=== PATIENT | male | born 1980 | race Caucasian/White ===

== ENCOUNTER → 2016-05-12 | Outpatient (REF) | payer OTHER | LOC: M LABSMT 09:03 | PROVIDERS: ATTEND Nurse Practitioner Women's Health | DX: E29.1 Testicular hypofunction (principal) ==

== ENCOUNTER 2016-08-18 08:49 | Emergency (ER) | payer OTHER ==
[2016-08-18] MEDS ORDERED: CLIN1CAP5 PO (09:12)
[2016-08-18] MEDS ORDERED: MOTR200T44 PO (09:12)
[2016-08-18] MEDS ORDERED: OXYC1TAB23 PO (09:12)
[2016-08-18] MEDS ORDERED: CLOM50TA2 PO (09:14)
[2016-08-18] MEDS ORDERED: MORPHINE 2 MG/ML 1ML SYRINGE IV ONE (09:45)
[2016-08-18] MEDS ORDERED: KETOROLAC 30 MG/ML VIAL (J1885) IV ONE (09:45)
[2016-08-18] MEDS ORDERED: methylPREDNISolone INJ 125 MG/2 ML VIAL (J2930) IV ONE (09:45)
[2016-08-18] MEDS ORDERED: CLINDAMYCIN 600 MG in APPROPRIATE DILUENT 1 EA IV ONE (09:45)
[2016-08-18] MEDS ORDERED: NS 1,000 ML IV ONE (09:45)
[2016-08-18 10:08] LABS: BASO # 0.1 K/mm3 (0.0-0.2); BASO % 0.6 % (0.0-1.0); EOS # 0.1 K/mm3 (0.0-0.50); EOS % 1.2 % (0.0-3.0); LARGE UNSTAINED CELL # 0.3 K/mm3 (0.0-0.4); LARGE UNSTAINED CELL % 2.5 % (0.0-4.0); LYMPH # 2.1 K/mm3 (1.5-4.5); LYMPH % 17.3 % (24.0-44.0); MEAN CORPUSCULAR HEMOGLOBIN 30.2 pg (27.0-33.0); MEAN CORPUSCULAR HGB CONC 33.7 g/dl (32.0-36.5); MEAN CORPUSCULAR VOLUME 89.7 fl (80.0-96.0); MONO # 0.4 K/mm3 (0.0-0.8); MONO % 4.1 % (0.0-5.0); NEUTROPHILS # 7.9 K/mm3 (1.8-7.7); NEUTROPHILS % 74.3 % (36.0-66.0); PLATELET COUNT, AUTOMATED 270 k/mm3 (150-450); RED CELL DISTRIBUTION WIDTH 11.9 % (11.5-14.5); WHITE BLOOD COUNT 10.6 K/mm3 (4.0-10.0)
[2016-08-18] MEDS ORDERED: MORPHINE 4 MG/ML 1ML SYRINGE IV ONE (10:30)
[2016-08-18 10:36] LABS: ALBUMIN 3.9 GM/DL (3.2-5.2); ALBUMIN/GLOBULIN RATIO 1.15 (1.00-1.93); ALKALINE PHOSPHATASE 73 U/L (45-117); ALT/SGPT 34 U/L (12-78); ANION GAP 7 MEQ/L (8-16); AST/SGOT 16 U/L (15-37); BILIRUBIN,DIRECT 0.1 MG/DL (0.0-0.2); BILIRUBIN,TOTAL 0.5 MG/DL (0.2-1.0); BLOOD UREA NITROGEN 7 MG/DL (7-18); CALCIUM LEVEL 8.9 MG/DL (8.5-10.1); CARBON DIOXIDE LEVEL 29 MEQ/L (21-32); CHLORIDE LEVEL 103 MEQ/L (98-107); CREATININE FOR GFR 1.06 MG/DL (0.70-1.30); GLOMERULAR FILTRATION RATE > 60.0 (>60); GLUCOSE, FASTING 88 MG/DL (70-105); SODIUM LEVEL 139 MEQ/L (136-145); TOTAL PROTEIN 7.3 GM/DL (6.4-8.2)
[2016-08-18] MEDS ORDERED: ISOVUE-370 76% 100ML VIAL (Q9967) As Ordered ONE (11:03)
[2016-08-18 11:53] VITALS: BP 121/67
--- NOTE | 2016-08-18 12:08 | REP ---
CT NECK WITH CONTRAST: HISTORY: Edema. Contrast: Isovue 370, 75 mL. The naso-, sneha- and hypopharynx, larynx and subglottic trachea are normal in appearance. The salivary and thyroid glands are normal. Enlarged lymph nodes 1.2 and 1.8 cm in width are present in the right internal jugular chain at the level of the sneha- and hypopharynx. An enlarged lymph node 1.3 cm in width is present in the left internal jugular chain at the level of the sneha- and hypopharynx. An enlarged lymph node 1.1 cm in width is present in the right posterior triangle at the level of the sneha- and hypopharynx. An enlarged lymph node 1.1 cm in width is present in the right submandibular area. Small lymph nodes less than 1 cm in size are present in the posterior triangles, left submandibular and submental areas. The lung apices are clear. Minimal mucosal thickening is present in the maxillary and right sphenoid sinuses. The second molar tooth of the right mandible is absent. IMPRESSION: Lymphadenopathy as described above. Signed by Home Grimm MD 08/18/2016 12:56 P
[2016-08-18] MEDS ORDERED: PERC10TA17 PO (12:11)
--- NOTE | 2016-08-18 12:11 | REP ---
MAXILLOFACIAL CT WITHOUT CONTRAST: HISTORY: Abscess. Minimal mucosal thickening is present in the maxillary and right sphenoid sinuses. The remaining sinuses are clear. The osteomeatal units are patent. The middle and inferior nasal turbinates are partially paradoxical. There is josey bullosa of the left middle nasal turbinate. The cribriform plate, medial loredo of the orbits and optic canals are intact. The carotid canals form a segment of the posterolateral loredo of the sphenoid sinus. The sphenoid sinus septum inserts into the left internal carotid canal wall. IMPRESSION: Sinus mucosal thickening as described above. Signed by Home Grimm MD 08/18/2016 12:57 P
== END 2016-08-18 12:24 | disposition home or self-care (01) ==
LOC: M ED 10:01
DX: R59.0 Localized enlarged lymph nodes (principal)
CPT/HCPCS: 36415; 70487; 70491; 80048; 80076; 83605; 85025; 86140; 87040; 96361; 96365; 96375; 96376; 99283; J1885; J2930; Q9967